=== PATIENT | male | born 1980 | race Caucasian/White ===

== ENCOUNTER 2017-06-23 01:10 | Emergency (ER) | payer BC ==
[~2017-06-23] VITALS: Ht 180.3 cm; Wt 72.2 kg
--- NOTE | 2017-06-23 01:20 | NUR ---
Pt BIB staff at [facility], due to ETOH intoxication, BAL = 0.323 per staff member. Pt has very unsteady gait, needed help to walk to bad 5A. Poor historian. No complaints, no distress noted.
--- NOTE | 2017-06-23 02:04 | NUR ---
Patient does not want any medical care at this time. ER MD , Dr Mccloud okay with patient signing out AMA at this time. Patient able to ambulate from ER. All belongings with patient. Patient signed AMA form. No acute distress noted. Patient alert and oriented x4 at time of dischrage. RN notified [facility] , Eliud and Brinda aware of patient condition.Contact information for [facility]- [phone].
--- NOTE | 2017-06-23 02:09 | NUR ---
Patient does not wish to proceed with medical care recommended by Dr. Mccloud. Patient given information related to possible complications, up to and including , which could occur as a result of leaving the hospital at this time. Patient verbalizes understanding of risks involved due to leaving against medical advice. Patient has signed AMA form.
== END 2017-06-23 02:10 | disposition left against medical advice (07) ==
LOC: ER 01:19
DX: F10.129 Alcohol abuse with intoxication, unspecified (principal)
CPT/HCPCS: 99281; A4663